=== PATIENT | male | born 1950 | race Caucasian/White ===

== ENCOUNTER → 2017-04-21 | Outpatient (CLI) | payer MEDICARE, OTHER ==
--- NOTE | 2017-04-21 13:10 | KCIC ---
Two-view left knee HISTORY: Pain. Injury in 1969. Increasing pain in the last weeks. 2 views standing left knee Mild degenerative changes. Joint space loss at the medial compartment. Mild generalized osteophytosis. No acute fracture or dislocation. No significant soft tissue abnormality. IMPRESSION: Primary osteoarthritis. Two-view right hip Poor visualization of the right hip due to overlying soft tissue. No obvious displaced fracture or dislocation. IMPRESSION: No obvious displaced fracture or dislocation but visualization of the hip is limited. Consider MR if further evaluation is warranted. Electronically signed by: Chuy Fontanez MD (04/21/2017 1:07 PM)
== END | disposition home or self-care (01) ==
LOC: KCIC 11:38
PROVIDERS: ATTEND Family Medicine
DX: M16.11 Unilateral primary osteoarthritis, right hip (principal); M17.12 Unilateral primary osteoarthritis, left knee
CPT/HCPCS: 73502; 73560

== ENCOUNTER → 2017-07-15 | Outpatient (CLI) | payer MEDICARE ==
--- NOTE | 2017-07-15 15:04 | KCIC ---
Indication: Right testicular swelling. The right testicle measures 2.6 x 1.9 x 2.2 cm and the left testicle measures 4.1 x 2.3 x 3.3 cm. Both testes demonstrate homogeneous echotexture. No discrete testicular mass is seen. There is blood flow to both testes. No significant hydrocele is identified. The right epididymis does appear to be larger than the left and show slightly more vascularity. This could be owing to epididymitis. No other abnormality is seen. IMPRESSION: 1. No evidence of testicular mass or vascular compromise. 2. Enlargement of the right epididymis and increased vascularity suggestive of epididymitis. Electronically signed by: Kalen Erickson MD (07/15/2017 3:00 PM) [id number]
== END | disposition home or self-care (01) ==
LOC: KCIC US 13:26
PROVIDERS: ATTEND Family Medicine
DX: N50.89 Other specified disorders of the male genital organs (principal)
CPT/HCPCS: 76870

== ENCOUNTER → 2020-06-08 | Outpatient (CLI) | payer MEDICARE ==
--- NOTE | 2020-06-08 10:07 | RAD ---
EXAM: ABDOMINAL ULTRASOUND. HISTORY: Abdominal pain, upper abdomen. COMPARISON: None. FINDINGS: Sonographic evaluation of the abdomen was performed. Liver is mildly enlarged, measuring 18.3 cm in length. Diffuse increased echogenicity compatible with fatty infiltration. There are no focal lesions. The spleen measures 13.4 cm. The gallbladder is unremarkable without evidence of stones, wall thickening or pericholecystic fluid. There is no sonographic Ren sign. The common duct measures 3 mm. The pancreas is obscured by bowel gas. The right kidney measures 12 x 4.7 x 6.3 cm. Cortical thickness and echogenicity are preserved. Multiple cortical cysts are noted, measuring up to 3.6 cm in the midpole and 1.5 cm in the lateral lower pole. There is no hydronephrosis. The left kidney measures 12.5 x 4.5 x 5.4 cm. Cortical thickness and echogenicity are preserved. There is no hydronephrosis. Inferior cysts measuring 1.6 cm laterally and 1.7 cm inferiorly. The visualized portions of the abdominal aorta and inferior vena cava are grossly patent and normal in caliber. IMPRESSION: Mild splenomegaly and borderline hepatomegaly. Otherwise unremarkable abdominal ultrasound with poorly visualized pancreas due to bowel gas. Electronically signed by: Edita Brown MD (06/08/2020 10:04 AM) [id number]
== END ==
LOC: US 09:22
PROVIDERS: ATTEND Family Medicine
DX: R16.1 Splenomegaly, not elsewhere classified (principal); K76.0 Fatty (change of) liver, not elsewhere classified
CPT/HCPCS: 76700